=== PATIENT | female | born 1995 | race Caucasian/White ===

== ENCOUNTER 2020-10-11 17:12 | Outpatient (REF) | payer OTHER, SELFPAY | END 2020-10-11 17:13 | disposition home or self-care (01) | LOC: HO.LAB 17:12 | PROVIDERS: Visit Provider Internal Medicine | DX: Z20.828 Contact with and (suspected) exposure to other viral communicable diseases (principal) | CPT/HCPCS: C9803; U0003 ==

== ENCOUNTER 2021-06-13 17:16 | Emergency (ER) | payer OTHER, SELFPAY ==
--- NOTE | ~2021-06-13 | US_ITS ---
EXAMINATION: RIGHT LOWER EXTREMITY DEEP VENOUS ULTRASOUND CLINICAL INFORMATION: Right lower extremity swelling for 2 weeks. Calf pain. COMPARISON: None. TECHNIQUE: Duplex Doppler imaging with compression maneuvers were performed of the right lower extremity deep venous system. FINDINGS: The visualized common femoral, femoral and popliteal veins demonstrate normal compressibility and color flow without evidence of venous thrombosis. Visualized portions of the calf veins demonstrate normal color fill-in suggesting patency. There is no evidence of a Dodd's cyst. US/US venous duplex LE RT IMPRESSION: No evidence of deep venous thrombosis involving the right lower extremity.
[2021-06-13 17:31] VITALS: BP 119/78; PULSE 83; RESP 18; TEMP 36.2; O2SAT 99; BMI 34.7
--- NOTE | 2021-06-13 17:54 | ED_ITS ---
HPI - Extremity Injury (Lower) General Chief Complaint: Extremity Injury, Lower Stated Complaint: right foot swelling Time Seen by Provider: 06/13/21 17:40 Source: patient Mode of arrival: ambulatory History of Present Illness HPI Narrative: 25-year-old female presenting to the ED complaining of right lower extremity swelling and pain x2 weeks. Reports symptoms worse with prolonged standing. Admits to associated tingling. Denies fever, chills, trauma/fall or injury, SOB/CP, cigarette smoking, oral OCPs, recent travel Related Data Previous Rx's Medication Instructions Recorded amoxicillin 875 mg-potassium 1 tab PO BID 10 Days #20 tab 11/25/20 clavulanate 125 mg tablet prednisone 20 mg tablet 20 mg PO .COMPLEX #18 tab 04/06/21 acetaminophen 500 mg tablet 500 mg PO Q6H PRN #20 tab 06/13/21 (Tylenol Extra Strength) ibuprofen 400 mg tablet 400 mg PO Q6H 7 Days #28 tab 06/13/21 Allergies Allergy/AdvReac Type Severity Reaction Status Date / Time No Known Allergies Allergy Verified 04/06/21 15:31 [No Known Allergies*] Review of Systems Review of Systems: Constitutional: No Fever, No Chills Cardiovascular: No Chest Pain, No SOB Respiratory: No Cough Musculoskeletal: + joint pain, No Myalgias, + Joint Swelling Skin: No Skin Lesions, No rash Neuro: No Weakness, No Numbness, + Paresthesias Yes all other systems are reviewed and are negative [facility] Past Medical History Attestation statement: The following information was validated with the patient. Medical History Migraines Surgical History No pertinent past surgical history Family History Family History Father No problems noted. Mother No problems noted. Maternal Aunt Hypertension Social History Social History Advance Directives: No Advance Directives Information Provided: Yes Patient : No Physical Exam Vital Signs: Vital Signs: Last Vital Signs Temp 97.2 F 06/13/21 17:31 Pulse 83 06/13/21 17:31 Resp 18 06/13/21 17:31 BP 119/78 06/13/21 17:31 Pulse Ox 99 06/13/21 17:31 Body Mass Index 34.7 Const: General: cooperative and healthy appearing Orientation/co nsciousness: patient oriented x3 Limitations: no limitations HENMT: Head: Yes normal to inspection Ears: hearing grossly normal bilaterally General nose exam: Normal external nose present Face and sinus: Yes normal facial exam Eyes: General: appearance normal, both eyes and all related structures EOM: EOMs intact bilaterally Neck: Neck: Yes normal visual inspection Resp: Effort & Inspection: normal respiratory effort and no respiratory distress Cardio: Rate: regular rate Peripheral pulses: dorsalis pedis present GI: Inspection: Yes normal to inspection Skin: Rashes: no rashes Wounds: no wounds Neuro: General: patient oriented x3 Gait exam (Neuro): Normal gait present Extrem: Other: Right ankle/foot with swelling. No erythema/ecchymosis. +right calf tender to palpation. NV intact. FROM intact General: Yes calf tenderness Course Course Course Narrative: US venous duplex LE RT IMPRESSION: No evidence of deep venous thrombosis involving the right lower extremity. >> results discussed with patient including worrisome signs and symptoms and strict return precautions MDM - Extremity Injury (Lower) MDM Narrative Medical decision making narrative: 25-year-old female presenting to the ED complaining of right lower extremity swelling and pain x2 weeks. Reports symptoms worse with prolonged standing. On exam vital signs stable, NAD/while repairing, physical exam as above. Notable right ankle/foot swelling and right calf tenderness on exam. Concern for DVT. Low concern for PE. Unlikely fracture. Plan: Ultrasound Discharge Plan Discharge Clinical Impression: Calf pain, Ankle swelling Patient Disposition: Home, Self-Care Instructions: Leg Edema (ED) Additional Instructions: Your ultrasound was negative for any blood clot You should wear compression stockings Wear Yunior wrap at home as needed for comfort/stability and compression Elevate your leg Take Tylenol and Motrin for pain Follow-up with her doctor If her symptoms persist or worsen, have chest pain or shortness of breath please return to the ED Prescriptions: New acetaminophen [Tylenol Extra Strength] 500 mg tablet 500 mg PO Q6H PRN (Reason: pain or fever) Qty: 20 RF: 0 ibuprofen 400 mg tablet 400 mg PO Q6H 7 Days Qty: 28 RF: 0 No Action prednisone 20 mg tablet 20 mg PO .COMPLEX Qty: 18 RF: 0 amoxicillin-pot clavulanate 875-125 mg tablet 1 tab PO BID 10 Days Qty: 20 RF: 0 Referrals: Cecilia Foss MD [Primary Care Provider] - 2 days Stand Alone Forms: Work/School Release
== END 2021-06-13 20:19 | disposition home or self-care (01) ==
PROVIDERS: Emergency Provider Emergency Medicine Emergency Medical Services; PCP Internal Medicine
DX: R60.0 Localized edema (principal); M25.571 Pain in right ankle and joints of right foot; Z79.899 Other long term (current) drug therapy
CPT/HCPCS: 93971; 99282; 99284

== ENCOUNTER 2021-06-16 14:55 | Emergency (ER) | payer OTHER, SELFPAY ==
[2021-06-16 15:15] VITALS: BP 129/84; PULSE 99; RESP 16; TEMP 36; O2SAT 99; BMI 32.9
[2021-06-16 20:25] LABS: MANUAL DIFF FLAG NO
[2021-06-16 20:26] LABS: Hematocrit 38.5 % (37-47); Hemoglobin 12.4 g/dl (12.0-16.0); Imm Gran Abs Auto 0.01 X10*3/uL (0.00-0.03); Imm Gran Pct Auto 0.2 % (0.0-0.4); Lymphocytes Absolute Auto 0.7 X10*3/uL (1.2-4.9); Lymphocytes Percent Auto 17.3 % (20-40); Mean Corpuscular HGB Conc 32.2 g/dl (31.0-35.0); Mean Corpuscular Hemoglobin 27.9 pg (27.0-33.0); Mean Corpuscular Volume 86.7 fL (80-98); Mean Platelet Volume 11.3 fL (9.4-12.3); Monocytes Absolute Auto 0.5 X10*3/uL (0.1-1.2); Neutrophils Absolute Auto 3.1 X10*3/uL (2.0-8.3); Neutrophils Percent Auto 71.5 % (45-73); Platelet Count 201 X10*3/uL (160-400); Red Blood Count 4.44 X10*6/uL (4.20-5.50); Red Cell Distribution Width 12.4 % (11.0-16.0); White Blood Count 4.3 X10*3/uL (4.8-10.8)
[2021-06-16 20:45] LABS: Alanine Aminotransferase 12 U/L (0-31); Albumin Level 4.3 g/dL (3.5-5.0); Alkaline Phosphatase 59 U/L (39-117); Anion Gap 14 (12-20); Aspartate Amino Transferase 15 U/L (5-31); Bilirubin Total 0.4 mg/dL (0.0-1.0); Blood Urea Nitrogen 13 mg/dL (9-16); Calcium 9.3 mg/dL (8.4-10.2); Carbon Dioxide 21 mmol/L (22-29); Chloride 105 mmol/L (96-108); Creatinine Clr Calc Pharmacy 105.7; Estimated Glomerular Filt Rate > 60; Glucose Random 97 mg/dL (60-115); Potassium 4.1 mmol/L (3.3-5.1); Sodium 136 mmol/L (135-145); Total Protein 7.4 g/dL (6.5-8.0)
[2021-06-16 20:50] LABS: B Type Natriuretic Peptide < 10 pg/mL (<100)
[2021-06-16 20:51] VITALS: BP 127/78; PULSE 94; RESP 18; TEMP 37.7; O2SAT 97
[2021-06-16 21:01] LABS: UPreg QC Valid YES; Urine Pregnancy NEGATIVE (NEGATIVE)
[2021-06-16 21:04] VITALS: BP 112/68; BP 119/76; PULSE 103; PULSE 84
[2021-06-16 21:07] VITALS: BP 124/80; PULSE 125
[2021-06-16] MEDS: Acetaminophen 325 MG TABLET 650 MG PO (21:29)
[2021-06-16] MEDS: Amoxicillin 500 MG CAPSULE PO (21:30)
[2021-06-16] MEDS: 0.9 % Sodium Chloride 1,000 ML 999 ML IVCONT (21:30)
[2021-06-16 21:52] LABS: Strep A Nucleic Acid Negative (Negative)
--- NOTE | 2021-06-16 22:16 | ED.GENADULT ---
HPI - General Adult General Chief complaint: General Medical Stated complaint: multiple complaints Time Seen by Provider: 06/16/21 20:50 Source: patient Mode of arrival: ambulatory History of Present Illness HPI narrative: 25-year-old female w/ a past medical history of migraines presenting to the ED complaining of sore throat, chills, headache, lightheadedness x2 days, and continued right-sided LE edema since prior ED visit on 06/13. Denies fever, ear pain, SOB/CP, abdominal pain, nausea/vomiting, history of blood clots, recent travel, sick contacts, COVID-19 exposure, difficulty swallowing Patient was seen and treated in our ED on 06/13 for RLE edema had negative duplex ultrasound Onset (ago): day(s) Related Data Previous Rx's Medication Instructions Recorded amoxicillin 875 mg-potassium 1 tab PO BID 10 Days #20 tab 11/25/20 clavulanate 125 mg tablet prednisone 20 mg tablet 20 mg PO .COMPLEX #18 tab 04/06/21 acetaminophen 500 mg tablet 500 mg PO Q6H PRN #20 tab 06/13/21 (Tylenol Extra Strength) ibuprofen 400 mg tablet 400 mg PO Q6H 7 Days #28 tab 06/13/21 amoxicillin 500 mg tablet 500 mg PO BID 10 Days #20 tab 06/16/21 Allergies Allergy/AdvReac Type Severity Reaction Status Date / Time No Known Allergies Allergy Verified 04/06/21 15:31 [No Known Allergies*] Review of Systems Review of Systems: Constitutional: No Fever, + Chills, No Fatigue, + Malaise ENT/Mouth: No Hearing loss, No Ear Pain, No Nasal Congestion, No Sinus Pain, No Hoarseness, + sore throat, No Rhinorrhea, No Swallowing Difficulty Eyes: No Eye Pain, No Swelling, No Vision Changes Cardiovascular: No Chest Pain, No SOB, +Edema, No Palpitations Respiratory: No Cough, No Sputum, No Dyspnea Gastrointestinal: No Nausea, No Vomiting, No Diarrhea, No Abdominal pain Genitourinary: No Dysuria, No Urinary Frequency, No Hematuria Musculoskeletal: No joint pain, No Myalgias, No Joint Swelling Skin: No Skin Lesions, No rash Neuro: No Weakness, No Numbness, + lightheadedness,+ Headache Yes all other systems are reviewed and are negative Neurologic: Denies Abnormal speech present [facility] Past Medical History Attestation statement: The following information was validated with the patient. Medical History Migraines Surgical History No pertinent past surgical history Family History Family History Father No problems noted. Mother No problems noted. Maternal Aunt Hypertension Social History Social History Advance Directives: No Patient : No Physical Exam Vital Signs: Vital Signs: Last Vital Signs Temp 98 F 06/16/21 23:02 Pulse 84 06/16/21 23:02 Resp 17 06/16/21 23:02 BP 122/67 06/16/21 23:02 Pulse Ox 99 06/16/21 23:02 Body Mass Index 32.9 Const: General: cooperative, healthy appearing and no acute distress Orientation/consciousness: patient oriented x3 Limitations: no limitations HENMT: Head: Yes normal to inspection Ears: hearing grossly normal bilaterally and TM's normal bilaterally General nose exam: Normal external nose present Face and sinus: Yes normal facial exam Throat: Yes uvula midline, Yes abnormal tonsil (Bilateral tonsillar erythema and white exudates), No peritonsillar mass, No uvula laterally displaced and No uvular edema Eyes: General: appearance normal, both eyes and all related structures EOM: EOMs intact bilaterally Neck: Neck: Yes normal visual inspection and Yes no meningeal signs Resp: Effort & Inspection: normal respiratory effort Auscultation: clear to auscultation bilaterally, no rhonchi and no wheezes Cardio: Rate: regular rate Heart sounds: S1 normal heart sound present and S2 normal heart sound present GI: Inspection: Yes normal to inspection Palpation (GI): Soft to palpation, nontender and no guarding Skin: Rashes: no rashes Wounds: no wounds Neuro: General: patient oriented x3, tone normal, moves all extremities, no meningeal signs, no focal motor deficits and CN's II-XI intact bilaterally Cranial nerves: Yes CN's II-XII intact bilaterally Cognition (Neuro): normal cognition Speech: No Abnormal speech present Motor exam (neuro): 5/5 motor strength present throughout Extrem: Other: No appreciable LE edema or calf tenderness General: Yes normal to inspection and Yes no pedal edema Course Course Course Narrative: -leukopenia of 4.3, labs otherwise unremarkable, rapid strep negative -urine negative -2349--UA negative. Patient is COVID-19 positive>> discussed with patient including worrisome signs and symptoms and strict return precautions. She verbalized understanding feel safe for discharge home Medical Decision Making MDM Narrative Medical decision making narrative: 25-year-old female w/ a past medical history of migraines presenting to the ED complaining of sore throat, chills, headache, lightheadedness x2 days, and continued right-sided LE edema since prior ED visit on 06/13. On exam VSS, NAD, well appearing, physical exam consistent with strep pharyngitis. No appreciable LE edema. Concern for viral syndrome/COVID-19. Low concern for PE/DVT or CHF Plan: EKG, labs, UA, IVF, reassess, Tylenol, 1st dose of Amoxicillin Lab Data Result diagrams: 06/16/21 20:20 06/16/21 20:20 Labs: Lab Results 06/16/21 06/16/21 06/16/21 Range/Units 20:20 20:20 20:20 WBC 4.3 L (4.8-10.8) X10*3/uL RBC 4.44 (4.20-5.50) X10*6/uL Hgb 12.4 (12.0-16.0) g/dl Hct 38.5 (37-47) % MCV 86.7 (80-98) fL MCH 27.9 (27.0-33.0) pg MCHC 32.2 (31.0-35.0) g/dl RDW 12.4 (11.0-16.0) % Plt Count 201 (160-400) X10*3/uL MPV 11.3 (9.4-12.3) fL Immature Gran % (Auto) 0.2 (0.0-0.4) % Neut % (Auto) 71.5 (45-73) % Lymph % (Auto) 17.3 L (20-40) % [place] % (Auto) 11.0 (2-11) % Eos % (Auto) 0.0 (0-4) % Baso % (Auto) 0.0 (0-2) % Lymph # (Auto) 0.7 L (1.2-4.9) X10*3/uL [place] # (Auto) 0.5 (0.1-1.2) X10*3/uL Eos # (Auto) 0.0 (0.0-0.4) X10*3/uL Baso # (Auto) 0.0 (0.0-0.2) X10*3/uL Abs Immat Gran (auto) 0.01 (0.00-0.03) X10*3/uL Absolute Neuts (auto) 3.1 (2.0-8.3) X10*3/uL Absolute Nucleated RBC 0.000 (0.0-0.012) X10*3/uL Nucleated RBC % (auto) 0.0 (0.0-0.2) /100WBC Sodium 136 (135-145) mmol/L Potassium 4.1 (3.3-5.1) mmol/L Chloride 105 (96-108) mmol/L Carbon Dioxide 21 L (22-29) mmol/L Anion Gap 14 (12-20) BUN 13 (9-16) mg/dL Creatinine 0.83 (0.5-1.4) mg/dL Estim Creat Clear Calc 105.7 Estimated GFR > 60 Random Glucose 97 (60-115) mg/dL Calcium 9.3 (8.4-10.2) mg/dL Magnesium (1.6-2.6) mg/dL Total Bilirubin 0.4 (0.0-1.0) mg/dL AST 15 (5-31) U/L ALT 12 (0-31) U/L Alkaline Phosphatase 59 (39-117) U/L B-Natriuretic Peptide < 10 (<100) pg/mL Total Protein 7.4 (6.5-8.0) g/dL Albumin 4.3 (3.5-5.0) g/dL Urine Color Urine Appearance Urine pH (5.0-8.0) Ur Specific [place] (1.005-1.025) Urine Protein (NEG-TRACE) MG/DL Urine Glucose (UA) (NEG) MG/DL Urine Ketones (NEG) MG/DL Urine Blood (NEG) Urine Nitrite (NEG) Ur Leukocyte Esterase (NEG) Urine RBC (0) /HPF Urine WBC (0-4) /HPF Ur Squamous Epith Cells /LPF Amorphous Sediment /LPF Urine Bacteria /LPF Urine Mucus /LPF Urine Test (NEGATIVE) COVID-19 (PAUL) (Negative) COVID-19 Clin Com S. pyogenes GrpA ERNESTO (Negative) 06/16/21 06/16/21 06/16/21 Range/Units 20:47 21:28 21:28 WBC (4.8-10.8) X10*3/uL RBC (4.20-5.50) X10*6/uL Hgb (12.0-16.0) g/dl Hct (37-47) % MCV (80-98) fL MCH (27.0-33.0) pg MCHC (31.0-35.0) g/dl RDW (11.0-16.0) % Plt Count (160-400) X10*3/uL MPV (9.4-12.3) fL Immature Gran % (Auto) (0.0-0.4) % Neut % (Auto) (45-73) % Lymph % (Auto) (20-40) % [place] % (Auto) (2-11) % Eos % (Auto) (0-4) % Baso % (Auto) (0-2) % Lymph # (Auto) (1.2-4.9) X10*3/uL [place] # (Auto) (0.1-1.2) X10*3/uL Eos # (Auto) (0.0-0.4) X10*3/uL Baso # (Auto) (0.0-0.2) X10*3/uL Abs Immat Gran (auto) (0.00-0.03) X10*3/uL Absolute Neuts (auto) (2.0-8.3) X10*3/uL Absolute Nucleated RBC (0.0-0.012) X10*3/uL Nucleated RBC % (auto) (0.0-0.2) /100WBC Sodium (135-145) mmol/L Potassium (3.3-5.1) mmol/L Chloride (96-108) mmol/L Carbon Dioxide (22-29) mmol/L Anion Gap (12-20) BUN (9-16) mg/dL Creatinine (0.5-1.4) mg/dL Estim Creat Clear Calc Estimated GFR Random Glucose (60-115) mg/dL Calcium (8.4-10.2) mg/dL Magnesium 2.0 (1.6-2.6) mg/dL Total Bilirubin (0.0-1.0) mg/dL AST (5-31) U/L ALT (0-31) U/L Alkaline Phosphatase (39-117) U/L B-Natriuretic Peptide (<100) pg/mL Total Protein (6.5-8.0) g/dL Albumin (3.5-5.0) g/dL Urine Color Urine Appearance Urine pH (5.0-8.0) Ur Specific [place] (1.005-1.025) Urine Protein (NEG-TRACE) MG/DL Urine Glucose (UA) (NEG) MG/DL Urine Ketones (NEG) MG/DL Urine Blood (NEG) Urine Nitrite (NEG) Ur Leukocyte Esterase (NEG) Urine RBC (0) /HPF Urine WBC (0-4) /HPF Ur Squamous Epith Cells /LPF Amorphous Sediment /LPF Urine Bacteria /LPF Urine Mucus /LPF Urine Test NEGATIVE (NEGATIVE) COVID-19 (PAUL) (Negative) COVID-19 Clin Com S. pyogenes GrpA ERNESTO Negative (Negative) 06/16/21 06/16/21 Range/Units 23:04 23:04 WBC (4.8-10.8) X10*3/uL RBC (4.20-5.50) X10*6/uL Hgb (12.0-16.0) g/dl Hct (37-47) % MCV (80-98) fL MCH (27.0-33.0) pg MCHC (31.0-35.0) g/dl RDW (11.0-16.0) % Plt Count (160-400) X10*3/uL MPV (9.4-12.3) fL Immature Gran % (Auto) (0.0-0.4) % Neut % (Auto) (45-73) % Lymph % (Auto) (20-40) % [place] % (Auto) (2-11) % Eos % (Auto) (0-4) % Baso % (Auto) (0-2) % Lymph # (Auto) (1.2-4.9) X10*3/uL [place] # (Auto) (0.1-1.2) X10*3/uL Eos # (Auto) (0.0-0.4) X10*3/uL Baso # (Auto) (0.0-0.2) X10*3/uL Abs Immat Gran (auto) (0.00-0.03) X10*3/uL Absolute Neuts (auto) (2.0-8.3) X10*3/uL Absolute Nucleated RBC (0.0-0.012) X10*3/uL Nucleated RBC % (auto) (0.0-0.2) /100WBC Sodium (135-145) mmol/L Potassium (3.3-5.1) mmol/L Chloride (96-108) mmol/L Carbon Dioxide (22-29) mmol/L Anion Gap (12-20) BUN (9-16) mg/dL Creatinine (0.5-1.4) mg/dL Estim Creat Clear Calc Estimated GFR Random Glucose (60-115) mg/dL Calcium (8.4-10.2) mg/dL Magnesium (1.6-2.6) mg/dL Total Bilirubin (0.0-1.0) mg/dL AST (5-31) U/L ALT (0-31) U/L Alkaline Phosphatase (39-117) U/L B-Natriuretic Peptide (<100) pg/mL Total Protein (6.5-8.0) g/dL Albumin (3.5-5.0) g/dL Urine Color YELLOW Urine Appearance HAZY Urine pH 7.0 (5.0-8.0) Ur Specific [place] 1.020 (1.005-1.025) Urine Protein NEG (NEG-TRACE) MG/DL Urine Glucose (UA) NEG (NEG) MG/DL Urine Ketones NEG (NEG) MG/DL Urine Blood TRACE (NEG) Urine Nitrite NEG (NEG) Ur Leukocyte Esterase NEG (NEG) Urine RBC 1-4 (0) /HPF Urine WBC 0-2 (0-4) /HPF Ur Squamous Epith Cells 3+ /LPF Amorphous Sediment TRACE /LPF Urine Bacteria TRACE /LPF Urine Mucus TRACE /LPF Urine Test (NEGATIVE) COVID-19 (PAUL) Positive A (Negative) COVID-19 Clin Com See Note S. pyogenes GrpA ERNESTO (Negative) Discharge Plan Discharge Clinical Impression: COVID-19, Strep pharyngitis Patient Disposition: Home, Self-Care Additional Instructions: You have COVID-19. You clinically also have strep throat, amoxicillin as antibiotic, please take as prescribed At this time you will be okay for discharge. Please self quarantine for up to 14 days. Do not expose yourself to others. You may not go to work. If testing does come back negative you may return to activities as long as you are no longer having any symptoms for at least 3 days. Please continue to follow cold instructions and wash your hands frequently. You may take Tylenol as directed on the bottle for pain or fever. CDC Guidelines for home isolation: - Stay away from others - WEAR A MASK if you are sick AND STAY HOME - Cover your mouth and nose with a tissue when you cough or sneeze. Dispose of tissues in a lined trash can and wash your hands immediately with soap and water for at least 20 seconds. If soap and water are not available, clean hands with alcohol-based hand tax assessor that contains at least 60% alcohol. - Clean your hands often with soap and water for at least 20 seconds - Avoid touching your eyes, nose and mouth with unwashed hands - Do not share dishes, drinking glasses, cups, eating utensils, towels, or bedding with other people in your home. After using these items, wash them thoroughly with soap and water or put in the bung dropper. - Clean high-touch surfaces in your isolation area ( sick room and bathroom) every day; let a caregiver clean and disinfect high-touch surfaces in other areas of the home. Clean the area or item with soap and water or another detergent if it is dirty. Then, use a household disinfectant. - Limit contact with pets and animals: If you must care for a pet, wash your hands before and after interacting with them) Prescriptions: New amoxicillin 500 mg tablet 500 mg PO BID 10 Days Qty: 20 RF: 0 No Action acetaminophen [Tylenol Extra Strength] 500 mg tablet 500 mg PO Q6H PRN (Reason: pain or fever) Qty: 20 RF: 0 ibuprofen 400 mg tablet 400 mg PO Q6H 7 Days Qty: 28 RF: 0 prednisone 20 mg tablet 20 mg PO .COMPLEX Qty: 18 RF: 0 amoxicillin-pot clavulanate 875-125 mg tablet 1 tab PO BID 10 Days Qty: 20 RF: 0 Referrals: Cecilia Foss MD [Primary Care Provider] - 1 week Stand Alone Forms: Work/School Release
--- NOTE | 2021-06-16 22:22 | ECG_ITS ---
Test Reason : DIZZINESS Blood Pressure : / mmHG Vent. Rate : 079 BPM Atrial Rate : 079 BPM P-R Int : 158 ms QRS Dur : 080 ms QT Int : 380 ms P-R-T Axes : 060 047 031 degrees QTc Int : 435 ms Normal sinus rhythm Normal ECG No previous ECGs available Referred By: Vianey Bradford Electronically Signed By:KIMBERLEY NIX
[2021-06-16 22:45] VITALS: BP 117/71; PULSE 84; RESP 18; TEMP 37.3; O2SAT 98
[2021-06-16 23:02] VITALS: BP 122/67; PULSE 84; RESP 17; TEMP 36.6; O2SAT 99
[2021-06-16 23:11] LABS: Glucose Urine UA NEG (NEG); Leukocyte Esterase Urine NEG (NEG); Nitrite Urine NEG (NEG); UACC Culture Trigger NO; Urine Blood TRACE (NEG); Urine Ketones NEG (NEG); Urine Protein NEG (NEG-TRACE)
[2021-06-16 23:16] LABS: Appearance Urine HAZY; Color Urine YELLOW
[2021-06-16 23:21] LABS: COVID-19 Test Positive (Negative)
[2021-06-16 23:24] LABS: Amorphous Sediment Urine TRACE /LPF; Bacteria Urine TRACE /LPF; Mucus Urine TRACE /LPF; Squamous Epithelial Cell Urine 3+ /LPF; WBC Urine 0-2 /HPF (0-4)
== END 2021-06-17 02:42 | disposition home or self-care (01) ==
PROVIDERS: Physician Assistant; Emergency Provider Student in an Organized Health Care Education/Training Program; PCP Internal Medicine
DX: U07.1 COVID-19 (principal); J02.0 Streptococcal pharyngitis; R50.9 Fever, unspecified
CPT/HCPCS: 36415; 80053; 81001; 81025; 83735; 83880; 85025; 87635; 87651; 93005; 96360; 99284

== ENCOUNTER 2021-07-14 16:21 | Outpatient (REF) | payer OTHER, SELFPAY ==
--- NOTE | ~2021-07-14 | XR_ITS ---
EXAMINATION: XR FOOT, RIGHT CLINICAL INFORMATION: Pain in right foot COMPARISON: None TECHNIQUE: AP, lateral, and oblique views of the right foot. FINDINGS: The bones and soft tissues are normal. No fracture. Alignment is anatomic. Joint spaces are maintained. XR/XR foot RT 2V IMPRESSION: Normal right foot.
== END 2021-07-14 16:22 | disposition home or self-care (01) ==
LOC: HO.XRAY 16:21
PROVIDERS: PCP Internal Medicine; Visit Provider Nurse Practitioner Family
DX: M79.671 Pain in right foot (principal)
CPT/HCPCS: 73620

== ENCOUNTER 2021-10-03 16:00 | Outpatient (RCR) | payer OTHER, SELFPAY | END 2021-10-18 15:23 | disposition home or self-care (01) | LOC: HO.PT 16:00 | PROVIDERS: Visit Provider Nurse Practitioner Family | DX: M79.671 Pain in right foot (principal) | CPT/HCPCS: 97110; 97161; 97530 ==

== ENCOUNTER 2022-04-13 13:22 | Emergency (ER) | payer OTHER, SELFPAY ==
--- NOTE | ~2022-04-13 | XR_ITS ---
EXAMINATION: XR CHEST CLINICAL INFORMATION: Chest wall pain COMPARISON: None TECHNIQUE: 2 views of the chest were obtained. FINDINGS: No significant abnormality is noted involving the heart, lungs, mediastinum, bony thorax or soft tissues. XR/XR chest 2V IMPRESSION: No acute disease.
--- NOTE | 2022-04-13 13:27 | ECG_ITS ---
Test Reason : CHEST PAIN Blood Pressure : / mmHG Vent. Rate : 080 BPM Atrial Rate : 080 BPM P-R Int : 146 ms QRS Dur : 080 ms QT Int : 378 ms P-R-T Axes : 061 036 018 degrees QTc Int : 435 ms Normal sinus rhythm Normal ECG When compared with ECG of 16-JUN-2021 22:42, No significant change was found Referred By: Generic ED Physician Electronically Signed By:KIMBERLEY NIX
[2022-04-13 13:28] VITALS: BP 117/68; PULSE 77; RESP 19; TEMP 36.6; O2SAT 100; BMI 32.8
--- NOTE | 2022-04-13 17:27 | ED_ITS ---
HPI - General Adult General Chief complaint: General Medical Stated complaint: chest pain Time Seen by Provider: 04/13/22 17:27 Source: patient Mode of arrival: ambulatory Limitations: no limitations History of Present Illness HPI narrative: 26-year-old female presents with 2 days of left-sided chest wall pain. The chest wall pain is worse when she pushes on it. It started while she was sitting, there is no trauma, no heavy lifting, no twisting. The pain feels like a achy muscle pain . Patient also states she has had right leg swelling for months . Denies shortness of breath, nausea, diaphoresis, dizziness, lightheadedness, dyspnea on exertion, vomiting, diarrhea, nausea, abdominal pain, cough, fever, chills, headache, wheezing MD complaint: chest wall pain Onset (ago): day(s) (2) Location: chest Radiation: non-radiation Severity: moderate Severity scale (1-10): 4 Quality: aching Pain Consistency: constant Relieving factors: none Exacerbating factors: movement Associated symptoms: denies other symptoms Treatments prior to arrival: none Related Data Previous Rx's Medication Instructions Recorded ibuprofen 800 mg tablet 800 mg PO Q8H PRN pain 5 days #15 07/08/21 tabs cyclobenzaprine 5 mg tablet 5 mg PO TID 3 days #9 tabs 04/13/22 ketorolac 10 mg tablet 10 mg PO TID 5 days #15 tabs 04/13/22 Allergies Allergy/AdvReac Type Severity Reaction Status Date / Time No Known Allergies Allergy Verified 07/06/21 15:48 [No Known Allergies*] Review of Systems Constitutional: Constitutional: Denies body ache(s), Denies chills, Denies fatigue, Denies fever(s), Denies headache(s), Denies malaise and Denies weakness Eyes: Eyes: Denies diplopia ENT: Denies vertigo, Denies dizziness, Denies otalgia, Denies headache(s), Denies mouth pain, Denies post nasal drip, Denies sinus pain, Denies sinus pressure, Denies sore throat and Denies throat swelling Cardiovascular: Cardiovascular: Reports chest pain, Denies syncope, Reports leg edema, Denies lightheadedness, Denies Loss of Consciousness, Denies palpitations and Denies dyspnea Respiratory: Respiratory: Denies chest congestion, Denies cough and Denies dyspnea Gastrointestinal: Gastrointestinal: Denies abdominal pain, Denies hematochezia, Denies constipation, Denies diarrhea, Denies nausea and Denies vomiting Musculoskeletal: Musculoskeletal: Reports no additional musculoskeletal complaints Neurologic: Denies confusion, Denies vertigo, Denies dizziness, Denies syncope, Denies headache(s) and Denies weakness Psychiatric: Psychiatric: Denies anxiety, Denies confusion and Denies depression Endocrine: Endocrine: Denies fatigue and Denies palpitations Allergic/Immunologic: Allergic/Immunologic: Denies throat swelling PMFSH Past Medical History Medical History COVID-19 Migraines Otitis media Right foot pain Tendonitis Surgical History No pertinent past surgical history Family History Family History Father No problems noted. Mother No problems noted. Maternal Aunt Hypertension Social History Social History Patient Tobacco Use Status: Never used Tobacco e-Cigarette/Vaping Use: Never Used Second Hand Smoke Exposure: No Advance Directives: No Advance Directives Information Provided: No Physical Exam ED Vital Signs: Vital Signs - 24 hr 04/13/22 13:28 Temperature 98 F Pulse Rate 77 Respiratory Rate 19 Blood Pressure 117/68 Pulse Oximetry 100 Oxygen Delivery Method Room Air BMI result Body Mass Index 32.8 Const General: No confusion Nutritional Appearance: well nourished Orientation/consciousness: No confusion Limitations: no limitations [facility] Head: Yes normal to inspection, Yes normocephalic and Yes atraumatic Ears: hearing grossly normal bilaterally, external ears normal, TM's normal bilaterally and EAC's normal General nose exam: Normal external nose present Face and sinus: Yes normal facial exam and Yes sinuses nontender Mouth: Normal oral and palatal mucosa present Throat: Yes posterior oropharynx normal Eyes Conjunctivae: conjunctivae normal Pupils: Equal, round and reactive pupils present EOM: EOMs intact bilaterally Neck Neck: Yes full ROM, Yes no lymphadenopathy and Yes supple Resp Effort & Inspection: normal respiratory effort and able to speak in complete sentences Auscultation: clear to auscultation bilaterally, no crackles, no rales, no rhonchi and no wheezes Cardio Rate: regular rate Rhythm: regular rhythm Heart sounds: S1 normal heart sound present and S2 normal heart sound present GI Inspection: Yes normal to inspection Palpation (GI): Soft to palpation, nontender, no guarding and not rigid Percussion: Yes normal to percussion Auscultation: normal bowel sounds Skin General skin exam: no rashes or lesions noted Neuro General: No confusion Cranial nerves: Yes Equal, round and reactive pupils present Extrem General: Yes normal to inspection and Yes full ROM Psych Appearance: grossly normal Affect: normal affect Attitude: cooperative Thought process: Normal thought process present Course Course Course Narrative: 26-year-old female with 2 days of atraumatic left-sided chest pain. Patient has no associated cardiac symptoms, no shortness of breath, no nausea, no diaphoresis, no radiation of pain to her neck, arms or arms. no cardiac history on exam, patient is well-appearing, I can reproduce the pain by pushing on the left chest, patient states that it hurts when she pushes on her left pectoral muscle . Patient also states that she has had right leg swelling for months, on exam, her right leg is the same diameter as her left leg, there is no swelling, redness, or posterior calf tenderness . Most likely musculoskeletal, treated with ketorolac and Flexeril, will get troponin and D-dimer to rule out cardiac ischemia and pulmonary embolism Signed patient out to Hanny Martinez, awaiting lab results FINDINGS: No significant abnormality is noted involving the heart, lungs, mediastinum, bony thorax or soft tissues. XR/XR chest 2V IMPRESSION: No acute disease. Reevaluation(s) Reevaluation #1: on reexamination, patient's chest pain has resolved, she is feeling much better after ketorolac and flexeril Medical Decision Making ECG Data Interpretation: EKG shows normal sinus at a rate of 80, TN interval 146, QRS is 80, QTC 435, normal axis, no ST depressions or elevations, no T-wave abnormalities, when compared to EKG of 06/16/2021, no significant change Discharge Plan Discharge Clinical Impression: Atypical chest pain Patient Disposition: Home, Self-Care Instructions: Chest Pain (ED) Additional Instructions: your EKG, cardiac enzyme, and test for blood clot all came back negative I think this is most likely muscle chest wall pain. We will treat this with ketorolac and Flexeril. I would like you to make an appoint with your primary care provider for follow-up appointment. When you are taking the ketorolac do not take any ibuprofen containing products please return to emergency room for any new or Prescriptions: New ketorolac 10 mg tablet 10 mg PO TID 5 Days Qty: 15 0RF cyclobenzaprine 5 mg tablet 5 mg PO TID 3 Days Qty: 9 0RF No Action ibuprofen 800 mg tablet 800 mg PO Q8H PRN (Reason: pain) 5 Days Qty: 15 0RF
[2022-04-13] MEDS: Cyclobenzaprine HCl 10 MG TABLET PO (18:39)
[2022-04-13] MEDS: Ketorolac Tromethamine 30 MG/ML VIAL IM (18:40)
[2022-04-13 19:38] LABS: D Dimer High Sensitivity < 150 NG/ML
[2022-04-13 19:45] LABS: Troponin-I High Sensitivity < 3.5 ng/L (<3.5-17.0)
== END 2022-04-13 20:17 | disposition home or self-care (01) ==
PROVIDERS: Physician Assistant; Emergency Provider Emergency Medicine; PCP Internal Medicine
DX: R07.89 Other chest pain (principal)
CPT/HCPCS: 36415; 71046; 84484; 85379; 93005; 96372; 99283; 99284; J1885

== ENCOUNTER 2022-10-12 14:58 | Outpatient (REF) | payer OTHER, SELFPAY ==
[2022-10-12 16:25] LABS: Appearance Urine Clear; Color Urine Yellow; Glucose Urine UA Negative (Negative); Leukocyte Esterase Urine Negative (Negative); Nitrite Urine Negative (Negative); Specific Gravity - Urine 1.015 (1.005-1.025); Urine Blood Negative (Negative); Urine Ketones Negative (Negative); Urine Protein Negative (Neg-Trace)
== END 2022-10-12 14:59 | disposition home or self-care (01) ==
LOC: HO.LAB 14:58
PROVIDERS: Visit Provider Internal Medicine
DX: R30.0 Dysuria (principal)
CPT/HCPCS: 81003

== ENCOUNTER 2022-12-10 12:06 | Emergency (ER) | payer OTHER, SELFPAY ==
[2022-12-10 12:32] VITALS: BP 131/84; PULSE 79; RESP 16; TEMP 36.8; O2SAT 100; BMI 33.6
--- NOTE | 2022-12-10 12:35 | ED.ALLEREA ---
HPI - Allergic Reaction General Chief complaint: Skin/Abscess/Foreign Body Stated complaint: itchy, rash all over body, eyes swollen Time Seen by Provider: 12/10/22 12:37 Source: patient Mode of arrival: ambulatory History of Present Illness HPI narrative: 27-year-old female past medical history of otitis media, tendinitis, presenting to the ED complaining of diffuse rash which woke her up at 03:00AM resolved s/p taking Benadryl. Reports mild bilateral eye puffiness remains. Denies known new exposures/medications or contacts. Denies known allergens. Denies were closing sensation, cough, SOB, CP complaint: allergic reaction Onset (ago): hour(s) Related Data Previous Rx's Medication Instructions Recorded ketorolac 10 mg tablet 10 mg PO TID 5 days #15 tabs 08/17/22 cetirizine 10 mg tablet (Zyrtec) 10 mg PO DAILY allergy symptoms 12/10/22 #14 tabs diphenhydramine HCl 25 mg capsule 25 mg PO TID PRN allergic reaction 12/10/22 (Benadryl) #14 caps prednisone 20 mg tablet 40 mg PO DAILY 5 days #10 tabs 12/10/22 Allergies Allergy/AdvReac Type Severity Reaction Status Date / Time No Known Allergies Allergy Verified 12/10/22 12:32 [No Known Allergies*] Review of Systems Review of Systems: Constitutional: No Fever, No Chills, No Fatigue, No Malaise ENT/Mouth: No Ear Pain, No Nasal Congestion, No Sinus Pain, No Hoarseness, No sore throat, No Rhinorrhea, No Swallowing Difficulty Eyes: No Eye Pain, + Swelling, No Redness, No Vision Changes Cardiovascular: No Chest Pain, No SOB, No Dyspnea on Exertion, No Edema, No Palpitations Respiratory: No Cough, No Sputum, No Wheezing, No Dyspnea Gastrointestinal: No Nausea, No Vomiting, No Diarrhea, No Constipation, No Abdominal pain Genitourinary: No Dysuria, No Urinary Frequency, No Hematuria, No Flank Pain, No Urinary Flow Changes, No Hesitancy Musculoskeletal: No joint pain, No Myalgias, No Joint Swelling Skin: No Skin Lesions, + rash (resolved) Neuro: No Weakness, No Dizziness, No Headache Yes all other systems are reviewed and are negative Constitutional: Constitutional: Reports as per HPI PMFSH Past Medical History Attestation statement: The following information was validated with the patient. Medical History COVID-19 Migraines Otitis media Right foot pain Tendonitis Surgical History No pertinent past surgical history Family History Family History Father No problems noted. Mother No problems noted. Maternal Aunt Hypertension Social History Social History Patient Tobacco Use Status: Never used Tobacco e-Cigarette/Vaping Use: Never Used Second Hand Smoke Exposure: No Advance Directives: No Advance Directives Information Provided: No Physical Exam ED Vital Signs: Vital Signs - 24 hr 12/10/22 12:32 Temperature 98.2 F Pulse Rate 79 Respiratory Rate 16 Blood Pressure 131/84 Pulse Oximetry 100 Oxygen Delivery Method Room Air BMI result Body Mass Index 33.6 Const General: cooperative, healthy appearing, comfortable, no acute distress, well developed, alert and awake Orientation/consciousness: patient oriented x3 Limitations: no limitations HENMT Head: Yes normal to inspection and Yes atraumatic Ears: hearing grossly normal bilaterally General nose exam: Normal external nose present Face and sinus: Yes normal facial exam Mouth: Normal oral and palatal mucosa present Throat: Yes posterior oropharynx normal, Yes tonsils normal, Yes uvula midline, No peritonsillar mass, No uvula laterally displaced and No uvular edema Eyes General: appearance normal, both eyes and all related structures Periorbital: periorbital findings abnormal bilateral (Puffiness) no crepitus Conjunctivae: conjunctivae normal Pupils: Equal, round and reactive pupils present EOM: EOMs intact bilaterally Neck Neck: Yes normal visual inspection and Yes no meningeal signs Resp Effort & Inspection: normal respiratory effort, no pursed lip breathing, no respiratory distress, no stridor and not tachypneic Auscultation: clear to auscultation bilaterally, no crackles, no rales, no rhonchi and no wheezes Cardio Rate: regular rate Heart sounds: S1 normal heart sound present and S2 normal heart sound present GI Inspection: Yes normal to inspection Skin Other: No mucous membrane, palm, or sole involvement Rashes: no rashes Wounds: no wounds Neuro General: patient oriented x3, tone normal and no meningeal signs Cranial nerves: Yes Equal, round and reactive pupils present Gait exam (Neuro): Normal gait present Extrem General: Yes normal to inspection Medical Decision Making Medical Decision Making [facility] Narrative: 27-year-old female past medical history of otitis media, tendinitis, presenting to the ED complaining of diffuse rash which woke her up at 03:00AM resolved s/p taking Benadryl. On exam vital signs stable, NAD, nontoxic appearing, mild bilateral eye puffiness noted, no appreciable rash at this time, talking in complete sentences, no intraoral swelling, uvula midline, no stridor. Lungs CTA. Concern for allergic reaction. No evidence of anaphylaxis. No appreciable cellulitis Patient with pictures on her phone of hives to bilateral UE and side which are resolved at present Plan: Zyrtec, Benadryl, p.o. prednisone (as needed when/if sx recur), musical therapist follow-up Results discussed with patient including worrisome signs and symptoms and strict return precautions, and when to return to the emergency department. They verbalized understanding and feel safe for discharge at this time. Differential Diagnosis Differential Diagnoses: The differential diagnosis associated with the presentation includes as above Prescription Management I considered prescription management with: Other Discharge Plan Discharge Clinical Impression: Allergic reaction Patient Disposition: Home, Self-Care Instructions: General Allergic Reaction (ED) Additional Instructions: Start taking Zyrtec daily. In addition take Benadryl as needed for allergic reaction symptoms, Benadryl will make you drowsy. Prednisone as a steroid to help with diffuse allergic reaction symptoms, take only when symptoms recur. Please follow-up with her primary care doctor and musical therapist If he develops shortness of breath, throat closing sensation, diffuse/unremitting rash or fever return to the ED Prescriptions: New diphenhydramine HCl [Benadryl] 25 mg capsule 25 mg PO TID PRN (Reason: allergic reaction) Qty: 14 0RF cetirizine [Zyrtec] 10 mg tablet 10 mg PO DAILY Qty: 14 0RF prednisone 20 mg tablet 40 mg PO DAILY 5 Days Qty: 10 0RF No Action ketorolac 10 mg tablet 10 mg PO TID 5 Days Qty: 15 0RF Referrals: Chele Williamson MD [Physician] - Fredi Nguyen DO [Physician] - Reshma Anderson MD [Physician] -
== END 2022-12-10 12:56 | disposition home or self-care (01) ==
PROVIDERS: Emergency Provider Student in an Organized Health Care Education/Training Program; PCP Internal Medicine
DX: L50.0 Allergic urticaria (principal)
CPT/HCPCS: 99282

== ENCOUNTER 2023-01-28 23:51 | Emergency (ER) | payer OTHER, SELFPAY ==
[2023-01-29 00:15] VITALS: BP 132/77; PULSE 71; RESP 16; TEMP 36.7; O2SAT 100; BMI 33.5
--- NOTE | 2023-01-29 00:34 | ED.ALLEREA ---
HPI - Allergic Reaction General Chief complaint: Allergic Reaction Stated complaint: rash? Time Seen by Provider: 01/29/23 00:18 Source: patient Mode of arrival: ambulatory Limitations: no limitations History of Present Illness HPI narrative: Patient with no known allergy to any food items in the past had allergic reaction last month and again today after eating Arabic fries which she had before in the past without any problem noticed swelling of the lips and hives on the trunk and the upper extremity no shortness of breath no throat swelling or difficulty in breathing no vomiting Related Data Previous Rx's Medication Instructions Recorded cetirizine 10 mg tablet (Zyrtec) 10 mg PO DAILY allergy symptoms 12/10/22 #14 tabs diphenhydramine HCl 25 mg capsule 25 mg PO TID PRN allergic reaction 12/10/22 (Benadryl) #14 caps prednisone 20 mg tablet 40 mg PO DAILY 5 days #10 tabs 12/10/22 diphenhydramine HCl 25 mg capsule 50 mg PO TID PRN allergic reaction 01/29/23 (Benadryl) #30 caps prednisone 20 mg tablet 40 mg PO DAILY #10 tabs 01/29/23 Allergies Allergy/AdvReac Type Severity Reaction Status Date / Time No Known Allergies Allergy Verified 12/26/22 14:16 [No Known Allergies*] Review of Systems Review of Systems: Yes all other systems are reviewed and are negative PMFSH Past Medical History Medical History COVID-19 Migraines Otitis media Right foot pain Tendonitis Surgical History No pertinent past surgical history Family History Family History Father No problems noted. Mother No problems noted. Maternal Aunt Hypertension Social History Social History Housing: Apartment Alcohol intake: current Alcohol intake frequency: holidays/special occasions only Alcohol type: wine Patient Tobacco Use Status: Never used Tobacco Smoked in Last 30 Days: No e-Cigarette/Vaping Use: Never Used Second Hand Smoke Exposure: No Use of substances other than those prescribed or required for medical reasons: No Advance Directives: No Patient : No service: No Current occupational status: employed Current occupational exposures/hazards: No Cognitive needs: No Hearing needs: No Vision needs: Yes Physical Exam ED Vital Signs: Vital Signs - 24 hr 01/29/23 00:15 Temperature 98.0 F Pulse Rate 71 Respiratory Rate 16 Blood Pressure 132/77 Pulse Oximetry 100 Oxygen Delivery Method Room Air BMI result Body Mass Index 33.5 Appearance: Alert. Oriented X3. No acute distress. Eyes: Swelling of the eyelids++ ENT: Pharynx normal. Oral Mucosa moist swollen lips uvula normal Neck: Normal inspection. Neck supple. CVS: Normal heart rate and rhythm. Pulses normal. Respiratory: No respiratory distress. Equal air entry bilateral, no wheezing/rales/rhonchi Abdomen: Soft and nontender. Bowel sounds are present, Skin: Skin warm and dry. Hives upper extremities and chest and back Extremities: No lower extremity edema. No calf tenderness Neuro: Oriented X 3. Medications Administered Discontinued Medications Generic Name Dose Route Start Last Admin Trade Name Freq PRN Reason Stop Dose Admin Dexamethasone Sodium Phosphate 10 mg 01/29/23 00:32 01/29/23 00:40 Dexamethasone Sod Phosphate 10 Mg/Ml Vial IVPUSH 01/29/23 00:33 10 mg ONCE ONE Administration Diphenhydramine HCl 25 mg 01/29/23 00:32 01/29/23 00:38 Diphenhydramine Hcl 50 Mg/Ml Vial IVPUSH 01/29/23 00:33 25 mg ONCE ONE Administration Famotidine 20 mg 01/29/23 00:32 01/29/23 00:43 Famotidine/Pf 20 Mg/2 Ml Vial IVPUSH 01/29/23 00:33 20 mg ONCE ONE Administration Medical Decision Making Lab Data 01/29/23 00:35 01/29/23 00:35 Labs: Lab Results 01/29/23 01/29/23 Range/Units 00:35 00:35 WBC 8.9 (4.8-10.8) X10*3/uL RBC 4.46 (4.20-5.50) X10*6/uL Hgb 12.5 (12.0-16.0) g/dl Hct 38.7 (37.0-47.0) % MCV 86.8 (80.0-98.0) fL MCH 28.0 (27.0-33.0) pg MCHC 32.3 (31.0-35.0) g/dl RDW 12.2 (11.0-16.0) % Plt Count 264 (160-400) X10*3/uL MPV 10.9 (9.4-12.3) fL Immature Gran % (Auto) 0.2 (0.0-0.4) % Neut % (Auto) 59.0 (45-73) % Lymph % (Auto) 33.5 (20-40) % [place] % (Auto) 6.1 (2-11) % Eos % (Auto) 0.9 (0-4) % Baso % (Auto) 0.3 (0-2) % Lymph # (Auto) 3.0 (1.2-4.9) X10*3/uL [place] # (Auto) 0.5 (0.1-1.2) X10*3/uL Eos # (Auto) 0.1 (0.0-0.4) X10*3/uL Baso # (Auto) 0.0 (0.0-0.2) X10*3/uL Abs Immat Gran (auto) 0.02 (0.00-0.03) X10*3/uL Absolute Neuts (auto) 5.2 (2.0-8.3) x10*3/uL Absolute Nucleated RBC 0.000 (0.0-0.012) X10*3/uL Nucleated RBC % (auto) 0.0 (0.0-0.2) /100WBC Sodium 138 (135-145) mmol/L Potassium 3.9 (3.3-5.1) mmol/L Chloride 105 (96-108) mmol/L Carbon Dioxide 23 (22-29) mmol/L Anion Gap 14 (12-20) BUN 15 (9-16) mg/dL Creatinine 0.75 (0.5-1.4) mg/dL Estim Creat Clear Calc 115.9 Estimated GFR > 60 Random Glucose 98 (60-115) mg/dL Calcium 9.5 (8.4-10.2) mg/dL Discharge Plan Discharge Clinical Impression: Allergic reaction Patient Disposition: Home, Self-Care Instructions: General Allergic Reaction (ED) Additional Instructions: you are Likely allergic to some kind of food/nuts/oil Take Benadryl 50 mg every 6 hour as needed Prednisone for 5 days See her PCP for further evaluation Prescriptions: New prednisone 20 mg tablet 40 mg PO DAILY Qty: 10 0RF diphenhydramine HCl [Benadryl] 25 mg capsule 50 mg PO TID PRN (Reason: allergic reaction) Qty: 30 0RF No Action diphenhydramine HCl [Benadryl] 25 mg capsule 25 mg PO TID PRN (Reason: allergic reaction) Qty: 14 0RF cetirizine [Zyrtec] 10 mg tablet 10 mg PO DAILY Qty: 14 0RF prednisone 20 mg tablet 40 mg PO DAILY 5 Days Qty: 10 0RF
[2023-01-29 00:38] LABS: MANUAL DIFF FLAG NO
[2023-01-29] MEDS: diphenhydrAMINE HCL 50 MG/ML VIAL 25 MG IVPUSH (00:38)
[2023-01-29 00:40] LABS: Basophils Percent Auto 0.3 % (0-2); Eosinophils Absolute Auto 0.1 X10*3/uL (0.0-0.4); Eosinophils Percent Auto 0.9 % (0-4); Hematocrit 38.7 % (37.0-47.0); Hemoglobin 12.5 g/dl (12.0-16.0); Imm Gran Abs Auto 0.02 X10*3/uL (0.00-0.03); Imm Gran Pct Auto 0.2 % (0.0-0.4); Lymphocytes Percent Auto 33.5 % (20-40); Mean Corpuscular HGB Conc 32.3 g/dl (31.0-35.0); Mean Corpuscular Volume 86.8 fL (80.0-98.0); Mean Platelet Volume 10.9 fL (9.4-12.3); Monocytes Absolute Auto 0.5 X10*3/uL (0.1-1.2); Monocytes Percent Auto 6.1 % (2-11); Neutrophils Absolute Auto 5.2 x10*3/uL (2.0-8.3); Platelet Count 264 X10*3/uL (160-400); Red Blood Count 4.46 X10*6/uL (4.20-5.50); Red Cell Distribution Width 12.2 % (11.0-16.0); White Blood Count 8.9 X10*3/uL (4.8-10.8)
[2023-01-29] MEDS: dexAMETHasone sod phosphate 10 MG/ML VIAL IVPUSH (00:40)
[2023-01-29] MEDS: Famotidine/PF 20 MG/2 ML VIAL IVPUSH (00:43)
[2023-01-29 00:59] LABS: Anion Gap 14 (12-20); Blood Urea Nitrogen 15 mg/dL (9-16); Calcium 9.5 mg/dL (8.4-10.2); Carbon Dioxide 23 mmol/L (22-29); Chloride 105 mmol/L (96-108); Creatinine Clr Calc Pharmacy 115.9; Estimated Glomerular Filt Rate > 60; Glucose Random 98 mg/dL (60-115); Potassium 3.9 mmol/L (3.3-5.1); Sodium 138 mmol/L (135-145)
--- NOTE | 2023-01-29 01:33 | PC.NURSE ---
Pt A&Ox4, denies any pain, reports hives all over body, lip swelling and eye swelling, no known allergies and no known exposure. States it started around 1830 last night. Pt denies any SOB, CP or palpitations. No respiratory distress noted, lung sounds clear. IV line established and blood work collected and sent to lab. Meds given as documented. Will CTM.
== END 2023-01-29 01:49 | disposition home or self-care (01) ==
PROVIDERS: Emergency Provider Internal Medicine; PCP Internal Medicine
DX: L50.0 Allergic urticaria (principal); Z79.899 Other long term (current) drug therapy
CPT/HCPCS: 36415; 80048; 85025; 96374; 96375; 99284; J1100; J1200

== ENCOUNTER 2023-06-25 14:15 | Outpatient (AMB) | payer OTHER, SELFPAY ==
[2023-06-25 14:19] VITALS: BP 112/80; BMI 32.9
--- NOTE | 2023-06-25 14:19 | A.OFFPC_ITS ---
Vital Signs 06/25/23 14:19 Height 5 ft 3 in Weight 186 lb BMI 32.9 BP 112/80 Blood Pressure Location Lt brachial Position Sitting Intake Visit Reasons: Annual Exam Intake Note: Patient here for a physical exam Orthopedic Podiatrist Required: No Accompanied by: Self / Same As Patient Allergies No Known Allergies [No Known Allergies*] Allergy (Verified 06/25/23 14:36) Medication List - Last Reconciled 06/25/23 by Cecilia Grayson MD No Known Home Meds Tobacco use date assessed: 03/22/23 Dental Screening Dental Screen Date: 06/25/23 Did you have a dental visit in the last 12 months?: No Did you have a dental problem in the last 6 months where you did not have access to dental care?: No Was dental information given to patient?: Patient has dentist HPI HPI Comments History of Present Illness Details This is a 27-year-old female that comes for her physical exam. She will call to schedule her Pap smear. Complains of bilateral breast pain at 06:00 o'clock and also upper back pain secondary to macromastia. Her breast straps gets indented in the skin. No chest pain or shortness of breath. No fever or cough. [facility] Medical History COVID-19 Migraines Otitis media Right foot pain Tendonitis Surgical History No pertinent past surgical history Family History Father No problems noted. Mother No problems noted. Maternal Aunt Hypertension Social History Housing: Apartment Alcohol intake: current Alcohol intake frequency: holidays/special occasions only Alcohol type: wine Patient Tobacco Use Status: Never used Tobacco e-Cigarette/Vaping Use: Never Used Second Hand Smoke Exposure: No service: No Current occupational status: employed Current occupational exposures/hazards: No Cognitive needs: No Hearing needs: No Vision needs: Yes Questionnaire Thrive Questionnaire Date Thrive assessed: 12/26/22 ÁNGEL-7 AMB Questionnaire ÁNGEL-7 Date ÁNGEL - 7 assessed: 12/26/22 Source: Developed by Drs. Job Buenrostro, Zeny Quiros, Matias Dover and colleagues, with an educational celso from [employer]. Review of Systems Const All systems reviewed & are unremarkable except as noted in HPI and below Eyes Reports no additional complaints, Denies change in vision and Denies other visual disturbances Card Denies chest pain at rest, Denies chest pain with activity, Denies edema, Denies irregular heart rhythm, Denies claudication, Denies dyspnea, Denies dyspnea on exertion, Denies orthopnea, Denies paroxysmal nocturnal dyspnea and Denies slow heart rate Resp Denies cough, Denies dyspnea and Denies dyspnea on exertion GI Denies abdominal pain, Denies change in bowel habits, Denies excessive flatus, Denies nausea and Denies vomiting Denies urinary incontinence, Denies urinary hesitancy and Denies urinary urgency Musc Denies abnormal gait, Denies atrophy, Denies deformity and Denies limited range of motion Skin/Breast Denies bleeding lesions, Denies changing lesions and Denies rash Neuro Denies abnormal gait and Denies lack of coordination Physical exam (Primary Care) Vital Signs: Last Vital Signs BP 112/80 06/25/23 14:19 BMI result Body Mass Index 32.9 Tobacco/Smoking Status: Tobacco use Status Tobacco use date assessed 03/22/23 06/25/23 14:22 Patient Tobacco Use Status Never used Tobacco 06/25/23 14:22 e-Cigarette/Vaping Use Never Used 06/25/23 14:22 Thrive Assessment: Date of Thrive Assessment Date Thrive assessed 12/26/22 06/25/23 14:22 Const Orientation/consciousness: patient oriented x3 [facility] Head: Yes normal to inspection, Yes normocephalic and Yes atraumatic Ears: external ears normal Eyes General: appearance normal, both eyes and all related structures Eyelids: Yes eyelids normal Conjunctivae: conjunctivae normal Neck Neck: Yes normal visual inspection and Yes supple Chest Other: Bilateral breast pain at 06:00 o'clock Resp Effort & Inspection: normal respiratory effort Auscultation: clear to auscultation bilaterally Cardio Jugular venous distension: no JVD Rate: regular rate Rhythm: regular rhythm Heart sounds: S1 normal heart sound present and S2 normal heart sound present GI Inspection: Yes normal to inspection Palpation (GI): Soft to palpation and nontender Auscultation: normal bowel sounds Skin General skin exam: no rashes or lesions noted Neuro General: patient oriented x3 and no focal motor deficits Extrem General: Yes full ROM Psych Appearance: grossly normal Assessment and Plan Assessment & Plan (1) Physical exam: Code(s): Z00.00 - Encounter for general adult medical examination without abnormal findings Plan: Repeat in a year Orders: Orders MM diagnostic mammo BI Today N64.4 - Mastodynia Medications: New sennosides (senna) 8.6 mg PO BEDTIME PRN 90 tabs 0RF constipation 90 days Coding Level of Care Code Est Pt Prev Care 18-39y(69062) Diagnoses Physical exam Z00.00 Time Spent (min) 32
== END 2023-06-25 14:48 | disposition home or self-care (01) ==
PROVIDERS: Visit Provider Internal Medicine
DX: Z00.00 Encounter for general adult medical examination without abnormal findings (principal)
CPT/HCPCS: 99395

== ENCOUNTER 2023-07-18 12:53 | Outpatient (REF) | payer OTHER, SELFPAY ==
--- NOTE | ~2023-07-18 | US_ITS ---
EXAMINATION: US BREAST DIAGNOSTIC, BILATERAL ULTRASOUND: CLINICAL INFORMATION: 27-year-old female complaining of bilateral retroareolar pain and heaviness. COMPARISON: No priors. TECHNIQUE: High-resolution grayscale sonography of the retroareolar regions of both breasts were performed in the areas as indicated by the patient. FINDINGS: RIGHT BREAST: There is a mixture of fatty and fibroglandular tissue. No suspicious solid or cystic lesion or area of suspicious echotexture is demonstrated. There is no duct ectasia. LEFT BREAST: There is a mixture of fatty and fibroglandular tissue. No suspicious solid or cystic lesion or area of suspicious echotexture is demonstrated. There is no duct ectasia. US/US breast BI limited mamm only IMPRESSION: No sonographic evidence of malignancy. No ultrasonographic correlate to the regions of retroareolar breast pain and heaviness. Recommend clinical management of the patient's symptoms. OVERALL ASSESSMENT: Ultrasound: BI-RADS 1 - Negative RECOMMENDATIONS: Clinical management. This examination should not preclude the clinical evaluation of a suspicious palpable abnormality.
== END 2023-07-18 12:54 | disposition home or self-care (01) ==
LOC: HO.MAMMO 12:53
PROVIDERS: PCP Internal Medicine; Visit Provider Internal Medicine
DX: N64.4 Mastodynia (principal)
CPT/HCPCS: 76642

== ENCOUNTER → 2023-07-18 13:00 | Outpatient (BNV) | payer SELFPAY | PROVIDERS: PCP Internal Medicine; Visit Provider Radiology Diagnostic Radiology | DX: N64.4 Mastodynia (principal) | CPT/HCPCS: 76642 ==

== ENCOUNTER 2025-03-18 14:56 | Outpatient (AMB) | payer BC, SELFPAY ==
[2025-03-18 14:58] VITALS: BP 121/64; PULSE 80; RESP 16; O2SAT 97; BMI 33.1
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
== END 2025-03-18 15:18 | disposition home or self-care (01) ==
LOC: HO.PMC 14:56
PROVIDERS: PCP Physician Assistant Medical; Referring Provider Physician Assistant Medical; Visit Provider Anesthesiology
DX: M54.50 Low back pain, unspecified (principal)
CPT/HCPCS: 99203

== ENCOUNTER → 2025-03-18 14:56 | Outpatient (BNVA) | payer BC, SELFPAY | PROVIDERS: PCP Physician Assistant Medical; Referring Provider Physician Assistant Medical; Visit Provider Anesthesiology ==